=== PATIENT | female | born 1985 | race Caucasian/White ===

== ENCOUNTER 2020-07-10 18:08 | Emergency (ER) | payer SELFPAY | END 2020-07-10 21:07 | disposition left against medical advice (07) | LOC: ER1 18:08 | DX: Z53.21 Procedure and treatment not carried out due to patient leaving prior to being seen by health care provider (principal) ==

== ENCOUNTER → 2021-08-04 | Outpatient (CLI) | payer OTHER | LOC: US 08-01 11:00 | DX: N60.01 Solitary cyst of right breast (principal) | CPT/HCPCS: 76641-RT ==